=== PATIENT | male | born 1965 | race Caucasian/White ===

== ENCOUNTER 2025-03-27 13:55 | Outpatient (CLI) | payer OTHER, SELFPAY ==
--- OUTSIDE RECORDS SUMMARY | 2025-03-27 14:09 | XMS_ITS | Referral Summary ---
Author Organization [facility] Address [address] [place] [address] Care Team Providers Care Radio Installer Name Role Phone Trey Rg MD Primary Care Provider + [phone] Allergies No known active allergies Medications oxyCODONE-aceta minophen (PERCOCET) 5-325 mg per tabletIndicatio ns:Pain Take 1-2 tablets by mouth every 4 (four) hours as needed for pain 40 tablet 07/01/2019 Active ciprofloxacin (CILOXAN) 0.3 % ophthalmic solution 07/11/2019 Active diclofenac 0.1 % ophthalmic solution 07/11/2019 Active HYDROcodone-stewart taminophen (NORCO) 5-325 mg per tablet 06/13/2019 Activ e prednisoLONE acetate (PRED FORTE) 1 % ophthalmic suspension 07/11/[address] (PROTONIX) 40 mg EC tablet 07/19/2019 Active Active Problems Problem Noted Date Diagnosed Date Primary osteoarthritis of right elbow 10/19/2016 Social History Tobacco Use Types Packs/Day Years Used Date Smoking Tobacco: Never Smokeless Tobacco: Never Alcohol Use Standard Drinks/Week Comments Yes 0 (1 standard drink = 0.6 oz pur e alcohol) rare Sex and Gender Information Value Date Recorded Sex Assigned at Not on file 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 Gender Identity Not on file Sexual Orientation Not on file Last Filed Vital Signs Vital Sign Reading Time Taken Comments Blood Pressure 129/68 07/01/2019 3:50 PM CDT Pulse 70 07/01/2019 3:50 PM CDT Temperature 36 C (96.8 F) 07/01/2019 2:34 PM CDT Respiratory Rate 0 07/01/2019 3:40 PM CDT Oxygen Saturation 94% 07/01/2019 3:50 PM CDT Inhaled Oxygen Concentration - - Weight 99.8 kg (220 lb) 06/10/2019 9:00 AM CDT Height 182.9 cm (6') 06/10/2019 9:00 AM CDT Body Mass Index 29.84 06/10/2019 9:00 AM CDT Plan of Treatment Not on file Insurance [facility] H[facility]PPO Address: [address] [address] [place] [address] Care Teams Radio Installer Relationship Specialty Start Date End Date Trey Rg MD PCP - General Family Practice 05/24/19
--- OUTSIDE RECORDS SUMMARY | 2025-03-27 14:09 | XMS_ITS | Clinical Summary ---
Author Organization [facility] Address [address] [place] [address] Care Team Providers Care Bottom Painter Name Role Phone Trey Rg MD Primary Care Provider [phone] Source Comments [facility] Affiliates and Associated Physician Practices is amultiple site organization consisting of ambulatory clinics and hospital sitesin [place], [place], [place] and [place]. This disclosure is being madepursuant to the Care Everywhere program and may not contain all information available regarding this patient. Last updated 18.[facility] Allergies No known active allergies Medications * Be aware that medications may not be up to date on this document. Alwaysverify current medications with the patient. Pseudoephedrine -APAP-DM (DAYQUIL MULTI-SYMPTOM PO) Active pseudoephedrine CR 12hr (SUDAFED 12 HOUR) 120 MG tablet Take 120 mg by mouth every 12 hours as needed for Nasal Congestion Active Active Problems Problem Noted Date Diagnosed Date Acute pain of right knee 04/30/2024 Primary osteoarthritis of right elbow 10/19/2016 Family History Medical History Relation Name Comments Cancer - Other Brother 1 Diabetes Brother 2 Heart Disease Brother 2 Hypertension Father Cancer - Breast Mother Relation Name Status Comments Brother 1 Brother 2 Father Mother Social History Tobacco Use Types Packs/Day Years Used Date Smoking Tobacco: Never Smokeless Tobacco: Never Tobacco Cessation:Counseling Given: Not Answered Alcohol Use Standard Drinks/Week Comments No 0 (1 standard drink = 0.6 oz pur e alcohol) PHQ-2 Answer Date Recorded Patient Health Questionnaire-2 Score 0 06/24/2023 Sex and Gender Information Value Date Recorded Sex Assigned at Not on file 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 Gender Identity Not on file Sexual Orientation Not on file Occupation Industry Job Start Date Job End Date [employer] Not on file Not on file Not on file Last Filed Vital Signs Vital Sign Reading Time Taken Comments Blood Pressure 128/78 07/03/2019 8:00 AM CDT Pulse 65 06/24/2023 9:36 AM CDT Temperature 36.7 C (98 F) 09/11/2018 1:20 PM VOICE INSTRUCTOR Respiratory Rate 20 06/26/2017 5:20 PM CDT Oxygen Saturation 98% 06/24/2023 9:36 AM CDT Inhaled Oxygen Concentration - - Weight 103.5 kg (228 lb 3.2 oz) 06/24/2023 9:36 AM CDT Height 182.9 cm (6') 09/11/2018 1:20 PM VOICE INSTRUCTOR Body Mass Index 30.95 09/11/2018 1:20 PM VOICE INSTRUCTOR Plan of Treatment Health Maintenance Due Date Last Done Comments COLOGUARD (AGES 45-75) - COLON CA SCREENING [address] COLONOGRAPHY - COLON CA SCREENING 1965 FIT - COLON CA SCREENING 1965 FLEX SIG - COLON CA SCREENING 1965 HIV SCREENING 01/21/1979 DTAP/TDAP/TD VACCINES (1 - Tdap) 01/21/1983 PNEUMOCOCCAL VACCINE 50+ (1 of 1 - PCV) 01/21/2014 ZOSTER VACCINE (1 of 2) 01/21/2014 LIPID TESTING 10/05/2017 10/05/2012 (Previously completed) COVID-19 VACCINE ( - 2023-2 5 season) 2024 DEPRESSION SCREENING 09/04/2024 06/24/2023 COLONOSCOPY - COLON CA SCREENING 09/16/2024 09/16/2014 (Declined) Colorectal Cancer Screening 09/16/2024 INFLUENZA VACCINE (#1) 2025 Respiratory Syncytial Virus (RSV) Vaccine Pt: or over 60 yrs (1 - 1-dose 75+ series) 01/21/2039 HEPATITIS C SCREENING Addressed 09/16/2014 (Declined) Overridden with the intention of not completing the topic HEPATITIS B VACCINE Aged Out No longe r eligible based on patient's age to complete this topic HIB VACCINE Aged Out No longer eligi ble based on patient's age to complete this topic HPV VACCINE Aged Out No longer eligi ble based on patient's age to complete this topic MENINGOCOCCAL (Group B) VACCINE SHARED DECISION-MAKING Aged Out No longer eligible b ased on patient's age to complete this topic MENINGOCOCCAL GROUPS A/C/Y/W VACCINE Aged Out No longer eligible b ased on patient's age to complete this topic Insurance [facility] Care Teams Bottom Painter Relationship Specialty Start Date End Date Trey Rg MD [address] [place] [address] PCP - General Internal Medicine 07/02/19
--- OUTSIDE RECORDS SUMMARY | 2025-03-27 14:09 | XMS_ITS | Clinical Summary ---
Author Organization [facility] Address Formerly [facility] [place] [address] Care Team Providers Care Breast Worker Name Role Phone Wilmer Pinzon MD Primary Care Provider + Allergies No known active allergies Medications tamsulosin (FLOMAX) 0.4 MG CapIndications:Urin tino urgency,Urinary frequency Take 1 capsule (0.4 mg total) by mouth daily. 30 capsule 5 Active meloxicam (MOBIC) 15 MG tabletIndications:P rimary osteoarthritis of right knee Take 1 tablet (15 mg total) by mouth daily. 30 tablet 2 5 Active dicyclomine (BENTYL) 20 MG tabletIndications:R ight upper quadrant abdominal pain Take 1 tablet (20 mg total) by mouth 2 (two) times a day. 60 tablet 5 Active Active Problems Problem Noted Date Diagnosed Date RUQ abdominal pain 02/05/2025 Gallbladder sludge 02/05/2025 Primary osteoarthritis of right knee 07/06/2024 Assessment & Plan (07/06/2024 11:53 AM CDT): We discussed the risks, benefits, and alternatives. The only thing proven to slow the progression of osteoarthritis is weight loss. Every pound lost relieves 4 to 6 pounds of stress across the knee. We discussed unloading braces. Formal physical therapy to help with flexibility, mobility, and strength. We discussed TENS units. Nonsteroidal anti-inflammatories as well as Tylenol and pain medication and their side effects. We discussed steroid versus Visco supplement injection. We discussed eventual total knee arthroplasty. Failure of non-operative treatment. Recommendation at this time, all questions are answered. He would like to proceed with knee arthroscopy. He does realize there may be an issue and may have to push him off if we have an irrigation issue with the saline shortage. He appears to understand. We'll try to get him set up for 07/31/24. Complex tear of medial menis cus of right knee as current injury, initial encounter 05/24/2024 Encounters Date Type Department Care Team Description 02/25/2025 Scan HEALTH INFO SRVCS Scanned, [facility] 02/13/2025 Prep for Procedure [facility] - [place] [address], [address] [place] [address] Blade Alvarado MD 02/12/[address] [address] Wilmer Pinzon MD Referral 02/10/2025 8:28 AM CDT - 02/10/2025 11:59 PM CDT Hospital Encounter [facility] Nuclear Medicine [address] [place] [address] Blade Alvarado MD Discharge Disposition: Home or Self Care (Routine Discharge) 02/10/2025 Travel 02/06/2025 Scan HEALTH INFO SRVCS Scanned, [facility] 02/05/2025 11:30 AM CDT Office Visit [facility] [place] [address], [address] [place] [address] Blade Alvarado MD Abdominal Pain (RUQ been going on for a couple of months- more related to meals) 02/05/2025 Travel 02/03/[address] [place] [address] Wilmer Pinzon MD Referral 01/29/[address] [phone] Wilmer Pinzon MD Medication Request 01/23/[address] [address] Wilmer Pinzon MD Results 01/15/2025 10:30 AM CDT - 01/15/2025 11:59 PM CDT Hospital Encounter [facility] [address] [place] [address] Wilmer Pinzon MD Discharge Disposition: Home or Self Care (Routine Discharge) 01/15/2025 Travel 01/13/2025 10:40 AM CDT Office Visit [facility] Orthopedic Surgery[facility] [address] [address] Saw Larsen NP Knee Pain (Right knee pain. Right knee scope 07/31/24) 01/13/2025 Scan [facility] INFO SRVCS Scanned, [facility] 01/13/2025 Travel 01/06/2025 [employer] Message Enc [address] [address] Wilmer Pinzon MD Updates? 01/02/2025 11:53 AM CDT - 01/02/2025 11:59 PM CDT Hospital Encounter [facility] [address] [place] [address] Wilmer Pinzon MD Discharge Disposition: Home or Self Care (Routine Discharge) 01/02/2025 11:50 AM CDT - 01/02/2025 11:52 AM CDT Hospital Encounter [facility] [address] [place] [address] Wilmer Pinzon MD Discharge Disposition: Home or Self Care (Routine Discharge) 01/02/2025 11:40 AM CDT Office [place] [address] [place] [address] Wilmer Pinzon MD Back Pain (Right sided abd pain and back pain /) 01/02/2025 Travel from Last 3 Months Family History Medical History Relation Comments Cancer Brother Hypertension Father Breast Cancer Mother Cancer Mother Relation Status Comments Brother Father Mother Social History Tobacco Use Types Packs/Day Years Used Date Smoking Tobacco: Never Passive Smoke Exposure: Never Smokeless Tobacco: Never Tobacco Cessation:Counseling Given: No Alcohol Use Standard Drinks/Week Comments Never 0 (1 standard drink = 0.6 oz pur e alcohol) PHQ-2 Answer Date Recorded Patient Health Questionnaire-2 Score 0 01/02/2025 Sex and Gender Information Value Date Recorded Sex Assigned at Male 10/03/2024 1:26 PM 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 Legal Sex Male 6:22 PM 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 Gender Identity Not on file Sexual Orientation Not on file Last Filed Vital Signs Vital Sign Reading Time Taken Comments Blood Pressure 128/80 02/05/2025 11:38 AM CDT Pulse 64 02/05/2025 11:20 AM CDT Temperature 36.7 C (98 F) 02/05/2025 11:20 AM CDT Respiratory Rate 20 02/05/2025 11:20 AM CDT Oxygen Saturation 96% 02/05/2025 11:20 AM CDT Inhaled Oxygen Concentration - - Weight 101.6 kg (224 lb) 02/05/2025 11:20 AM CDT Height 181.6 cm (5' 11.5) 02/05/2025 11:20 AM C DT Body Mass Index 30.81 02/05/2025 11:20 AM CDT Plan of Treatment Health Maintenance Due Date Last Done Comments Colorectal Cancer Screening Colonoscopy (10 Years) 1964 Annual Physical 01/21/1967 Hepatitis C 01/21/1982 DTaP, Tdap and Td Vaccines ( 1 - Tdap) 01/21/1983 Pneumococcal Vaccine: 50+ Ye ars (1 of 1 - PCV) 01/21/2014 Zoster Vaccines (1 of 2) 01/21/2014 COVID-19 Vaccine ( - 2023-2 5 season) 2024 RSV Immunization or 60+ Years (1 - 1-dose 75+ series) 01/21/2039 PHQ-2 (Physician [place]) Completed 01/02/2025 Meningococcal B Vaccine Aged Out No l onger eligible based on patient's age to complete this topic Meningococcal Vaccine Aged Out No carla skylar eligible based on patient's age to complete this topic RSV Immunizations Under 20 Months Aged Out No longer eligible based on patient's age to complete this topic Procedures Procedure Name Priority Date/Time Associated Diagnosis Comments NM HEPATOBILIARY SCAN W/GB EJECTION FRACTION SAGRARIO 02/10/2025 1:43 PM CDT RUQ abdominal pain US ABD LIMITED Routine 01/15/2025 11:11 AM CDT Right upper quadrant abdominal pain XR ABD KUB Routine 01/02/2025 12:06 PM CDT Right upper quadrant abdominal pain COMPREHENSIVE METABOLIC PANEL Routine 01/02/2025 11:53 AM CDT Right upper quadrant abdominal pain CBC W/DIFF AUTOMATED Routine 01/02/2025 11:53 AM CDT Right upper quadrant abdominal pain from Last 3 Months Results * NM HEPATOBILIARY SCAN W/GB EJECTION FRACTION (02/10/2025 1:43 PM CDT) Anatomical Region Laterality Modality Abdomen Nuclear Medicine 02/10/2025 1:37 PM CDT Impressions 02/10/2025 1:39 PM CDT IMPRESSION: 1. Normal hepatic uptake and excretion of the radiopharmaceutical. 2. Reduced contractile response of the gallbladder to fatty meal challenge. Differential considerations include biliary dyskinesia, cystic duct syndrome, chronic cholecystitis, and an occasional finding in normal individuals. Referred By: BLADE ALVARADO Interpreted By: Trey Sosa MD, 02/10/2025 1:37 PM Narrative 02/10/2025 1:39 PM CDT [facility] [address] [place] [address] Hepatobiliary Scintigraphy with Gallbladder Ejection Fraction Date of study: 02/10/2025. Indications: 60-year-old male with right upper quadrant abdominal pain. Radiopharmaceutical: 5.2 mCi Tc-99m mebrofenin IV and 8 oz Ensure Plus, p.o. Comparison: -Limited abdominal ultrasound dated 01/15/2025. Technique: Following intravenous administration of Tc-99m mebrofenin, sequential abdominal images were obtained through 60 minutes. In order to evaluate the contractile response of the gallbladder in response to cholecystokinin, 8 oz Ensure Plus was ingested approximately 60 minutes after the administration of the radiopharmaceutical. Sequential imaging was continued for 60 minutes after ingestion of Ensure Plus. Findings: There is prompt, uniform accumulation of tracer by the liver. There is normal filling of the intrahepatic ducts, common bile duct and gallbladder, and normal excretion of tracer into the duodenum. The post-fatty meal (Ensure Plus) images reveal reduced contractile response of the gallbladder. The calculated gallbladder ejection fraction is 22% (normal greater than 33%). Procedure Note Trey Sosa MD - 02/10/2025 [facility] [address] [place] [address] Hepatobiliary Scintigraphy with Gallbladder Ejection Fraction Date of study: 02/10/2025. Indications: 60-year-old male with right upper quadrant abdominal pain. Radiopharmaceutical: 5.2 mCi Tc-99m mebrofenin IV and 8 oz Ensure Plus, p.o. Comparison: -Limited abdominal ultrasound dated 01/15/2025. Technique: Following intravenous administration of Tc-99m mebrofenin, sequentialabdominal images were obtained through 60 minutes. In order to evaluatethe contractile response of the gallbladder in response tocholecystokinin, 8 oz Ensure Plus was ingested approximately 60 minutesafter the administration of the radiopharmaceutical. Sequential imagingwas continued for 60 minutes after ingestion of Ensure Plus. Findings: There is prompt, uniform accumulation of tracer by the liver. There isnormal filling of the intrahepatic ducts, common bile duct andgallbladder, and normal excretion of tracer into the duodenum. The post-fatty meal (Ensure Plus) images reveal reduced contractileresponse of the gallbladder. The calculated gallbladder ejection fractionis 22% (normal greater than 33%). IMPRESSION: 1. Normal hepatic uptake and excretion of the radiopharmaceutical. 2. Reduced contractile response of the gallbladder to fatty mealchallenge. Differential considerations include biliary dyskinesia, cysticduct syndrome, chronic cholecystitis, and an occasional finding in normalindividuals. Referred By: BLADE ALVARADO Interpreted By: Trey Sosa MD, 02/10/2025 1:37 PM us Blade Alvarado MD NUC MED Final Res ult * US ABD LIMITED (01/15/2025 11:11 AM CDT) Anatomical Region Laterality Modality Abdomen Ultrasound 2025 1:06 PM CDT Impressions 2025 1:09 PM CDT IMPRESSION: Mild hepatosteatosis. Trace biliary sludge. Acute or localizing sonographic abnormality Ordered By: WILMER PINZON Interpreted By: Rene Chanel, 2025 1:06 PM Narrative 2025 1:09 [place] [address] EXAMINATION: US ABD LIMITED INDICATIONS: Right upper quadrant pain COMPARISON: NONE TECHNIQUE Grayscale, color flow, and spectral Doppler ultrasound imaging of the abdomen, limited to the right upper quadrant. FINDINGS: The visualized liver is normal in morphology with minimal increased echogenicity. The portal triads are maintained. Focal geographic hypoechoic fatty sparing along the gallbladder fossa. No suspicious hepatic mass, biliary ductal dilatation, or perihepatic ascites. The portal vein is patent with hepatopedal flow. Smooth gallbladder distention with small amount of layering low-level intraluminal echoes dependently. No shadowing calculi, associated wall thickening, or pericholecystic edema. The gallbladder wall measures less than 3 mm in thickness. No reported sonographic Rogers's sign. The common duct measures approximately 3 mm at the joanna hepatis. The visualized pancreas is normal in echogenicity without mass or ductal dilatation. The pancreatic tail is poorly visualized. Color Doppler flow is preserved at the portosplenic confluence without filling defect. The visualized right kidney demonstrates normal parenchymal echogenicity and corticomedullary differentiation. No visualized renal mass, calculus, or hydronephrosis. No soft tissue mass or ascites within the area imaged. Procedure Note Rene Chanel MD - 2025 [facility] [address] [place] [address] EXAMINATION: US ABD LIMITED INDICATIONS: Right upper quadrant pain COMPARISON: NONE TECHNIQUE Grayscale, color flow, and spectral Doppler ultrasound imagingof the abdomen, limited to the right upper quadrant. FINDINGS: The visualized liver is normal in morphology with minimal increasedechogenicity. The portal triads are maintained. Focal geographic hypoechoic fatty sparing along the gallbladder fossa. No suspicious hepatic mass, biliary ductal dilatation, or perihepaticascites. The portal vein is patent with hepatopedal flow. Smooth gallbladder distention with small amount of layering low- levelintraluminal echoes dependently. No shadowing calculi, associated wall thickening, or pericholecysticedema. The gallbladder wall measures less than 3 mm in thickness. No reported sonographic Rogers's sign. The common duct measures approximately 3 mm at the joanna hepatis. The visualized pancreas is normal in echogenicity without mass or ductaldilatation. The pancreatic tail is poorly visualized. Color Doppler flow is preserved at the portosplenic confluence withoutfilling defect. The visualized right kidney demonstrates normal parenchymal echogenicityand corticomedullary differentiation. No visualized renal mass, calculus, or hydronephrosis. No soft tissue mass or ascites within the area imaged. IMPRESSION: Mild hepatosteatosis. Trace biliary sludge. Acute orlocalizing sonographic abnormality Ordered By: WILMER PINZON Interpreted By: Rene Chanel, 2025 1:06 PM us Wilmer Pinzon MD ULTRASOUND Final Re sult * XR ABD KUB (01/02/2025 12:06 PM CDT) Anatomical Region Laterality Modality Abdomen Radiographic Lilibeth ging 01/04/2025 7:49 AM CDT Impressions 01/04/2025 7:51 AM CDT IMPRESSION: Nonobstructive bowel gas pattern. If pain persists, may consider further evaluation with other imaging such as CT or ultrasound. Ordered By: WILMER PINZON Interpreted By: Greyson Angeles MD, 01/04/2025 7:49 AM Narrative 01/04/2025 7:51 AM CDT [address] [address] Examination: Abdomen 1 view Exam time: 01/02/2025. Clinical history: Pain. Comparison: None. Technique: Single supine view of the abdomen were obtained. Findings: Bowel gas pattern appears normal. No obvious free air on this supine film. Pelvic phleboliths. Bony structures are grossly intact. No organomegaly. Procedure Note Greysno Angeles MD - 01/04/[address] [address] Examination: Abdomen 1 view Exam time: 01/02/2025. Clinical history: Pain. Comparison: None. Technique: Single supine view of the abdomen were obtained. Findings: Bowel gas pattern appears normal. No obvious free air on thissupine film. Pelvic phleboliths. Bony structures are grossly intact. Noorganomegaly. IMPRESSION: Nonobstructive bowel gas pattern. If pain persists, may consider furtherevaluation with other imaging such as CT or ultrasound. Ordered By: WILMER PINZON Interpreted By: Greyson Angeles MD, 01/04/2025 7:49 AM Wilmer Pinzon MD GENERAL IMAGING Final Re sult * (ABNORMAL) COMPREHENSIVE METABOLIC PANEL (01/02/2025 11:53 AM CDT) GLUCOSE 101(H) 70 - 99 MG/DL 01/02/2025 3:02 PM CDT [facility] BUN 16 7 - 18 MG/DL 01/02/2025 3:02 PM CDT [facility] CREATININE S/P/B 0.99 0.7 - 1.3 MG/DL 01/02/2025 3:02 PM CDT [facility] SODIUM S/P/B 139 136 - 145 MMOL/L 01/02/2025 3:02 PM T [facility] POTASSIUM S/P/B 4.2 3.5 - 5.1 MMOL/L 01/02/2025 3:02 PM [facility] CHLORIDE S/P/B 105 100 - 108 MMOL/L 01/02/2025 3:02 PM T [facility] CO2 28.6 21 - 32 MMOL/L 01/02/2025 3:02 PM [facility] CALCIUM S/P/B 8.7 8.5 - 10.1 MG/DL 01/02/2025 3:02 PM [facility] BILIRUBIN TOTAL S/P/B 0.4 0.2 - 1.2 MG/DL 01/02/2025 3:02 PM [facility] Comment: THIS ASSAY IS NOT RECOMMENDED FOR PATIENTS UNDERGOING TREATMENT WITH ELTROMBOPAG DUE TO THE POTENTIAL FOR FALSELY ELEVATED RESULTS. TOTAL PROTEIN S/P/B 7.1 6.4 - 8.2 G/DL 01/02/2025 3:02 PM [facility] ALBUMIN S/P/B 3.8 3.4 - 5.0 G/DL 01/02/2025 3:02 PM [facility] AST 35 15 - 37 U/L 01/02/2025 3:02 PM [facility] ALT 43 16 - 60 U/L 01/02/2025 3:02 PM [facility] ALKALINE PHOSPHATASE S/P/B 75 50 - 136 U/L 01/02/2025 3:02 PM [facility] ANION GAP 5.4 5 - 15 MMOL/L 01/02/2025 3:02 PM [facility] BUN CREATININE RATIO 16.2 6 - 26 01/02/2025 3:02 PM CDT [facility] A/G RATIO 1.2 1.0 - 2.0 RATIO 01/02/2025 3:02 PM CDT [facility] GFR ESTIMATE 87(L) >90 ML/MIN/1.7 3 M2 01/02/2025 3:02 PM CDT [facility] Comment: NOTE: eGFR is not calculated for patients <18 years of age. This is an estimated GFR calculation using the new CKD EPI creatinine equation without race and so does not require a correction factor for race. This estimated GFR should not be used for calculating drug doses. 01/02/2025 11:5 3 AM CDT us Wilmer Pinzon MD LABORATORY Final Re sult [facility] [address] [place] [address], * (ABNORMAL) CBC W/DIFF AUTOMATED (01/02/2025 11:53 AM CDT) WBC 5.01 4.50 - 11.00 x10'3/uL 01/02/2025 1:08 PM CDT [facility] RBC 4.62(L) 4.70 - 6.10 x10'6/uL 01/02/2025 1:08 PM CDT [facility] HGB 14.3 14.0 - 18.0 G/DL 01/02/2025 1:08 PM CDT [facility] HCT 42.4(L) 43.0 - 54.0 % 01/02/2025 1:08 PM CDT [facility] MCV 91.8 80.0 - 94.0 FL 01/02/2025 1:08 PM CDT [facility] MCH 31.0 27.0 - 31.0 PG 01/02/2025 1:08 PM CDT [facility] MCHC 33.7 32.0 - 36.0 G/DL 01/02/2025 1:08 PM CDT [facility] RDW 13.5 11.5 - 14.5 % 01/02/2025 1:08 PM CDT [facility] PLT 194 130 - 400 x10'3/uL 01/02/2025 1:08 PM CDT [facility] MPV 10.5 9.3 - 12.2 FL 01/02/2025 1:08 PM CDT [facility] CBC COMMENT AUTOMATED RBC MORPHOLOGY AND PLATELET EVALUATION NORMAL 01/02/2025 1:08 PM CDT [facility] NEUTROPHILS % 51.9 % 01/02/2025 1:08 PM CDT [facility] LYMPHOCYTES % 29.5 % 01/02/2025 1:08 PM CDT [facility] MONOCYTES % 12.8 % 01/02/2025 1:08 PM CDT [facility] EOSINOPHILS 4.6 % 01/02/2025 1:08 PM T [facility] BASOPHILS 0.8 % 01/02/2025 1:08 PM CDT [facility] IMMATURE GRANS % 0.4 % 01/03/20 1:08 PM CDT [facility] NRBC % 0.0 % 01/02/2025 1:08 PM CDT [facility] ABS. NEUTROPHILS TOTAL 2.60 1.80 - 7.70 x10'3/uL 01/02/2025 1:08 PM T [facility] ABS. LYMPHOCYTES 1.48 1.00 - 4.80 x10'3/uL 01/02/2025 1:08 PM CDT [facility] ABS. MONOCYTES 0.64 0.30 - 0.82 x10'3/uL 01/02/2025 1:08 PM CDT [facility] ABS. EOSINOPHILS 0.23 0.04 - 0.54 x10'3/uL 01/02/2025 1:08 PM CDT [facility] ABS. BASOPHILS 0.04 0.01 - 0.08 x10'3/uL 01/02/2025 1:08 PM CDT [facility] ABS. IMMATURE GRANULOCYTES 0.02 0.00 - 0.49 x10'3/uL 01/02/2025 1:08 PM CDT [facility] ABS. NUCLEATED RBC'S 0.00 0.00 - 0.01 x10'3/uL 01/02/2025 1:08 PM CDT [facility] 01/02/2025 11:5 3 AM CDT Wilmer Pinzon MD LABORATORY Final Re sult [facility] [address] [place] [address], from Last 3 Months Insurance [employer] Care Teams Breast Worker Relationship Specialty Start Date End Date Wilmer Pinzon MD [address] [place] [id number] PCP - General FAMILY PRACTICE 01/11/23
--- OUTSIDE RECORDS SUMMARY | 2025-03-27 14:09 | XMS_ITS | Clinical Summary ---
Author Organization [facility] Address [address] [place] [address] Care Team Providers Care Marketing And Public Relations Manager Name Role Phone Trey Rg MD Primary Care Provider + [phone] Allergies No known active allergies Medications oxyCODONE-aceta [...] Date Primary osteoarthritis of right elbow 10/19/2016 Surgical History Surgery Date Site/Laterality Comments ELBOW SURGERY FOOT SURGERY 09/04/2011 - 09/03/2012 Left INGUINAL HERNIA REPAIR 06/13/2019 Left per patient Medical History Medical History Date Comments Osteoarthritis Family History Medical History Relation Name Comments Cancer Brother Diabetes Brother Mental illness Brother Hypertension Father Cancer Mother Anesthesia problems Neg Hx Heart disease Neg Hx Stroke Neg Hx Relation Name Status Comments Brother Father Mother Social History Tobacco Use Types Packs/Day Years Used Date Smoking Tobacco: Never Smokeless Tobacco: Never Alcohol Use Standard Drinks/Week Comments Yes 0 (1 standard drink = 0.6 oz pur e alcohol) rare Sex and Gender Information Value Date Recorded Sex Assigned at Not on file 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
--- NOTE | 2025-03-27 14:14 | ECG_ITS ---
Test Date: 2025-03-27 14:26:29 Measurements Intervals [place] Rate: 56 P: 59 MS: 145 QRS: 30 QRSD: 97 T: 16 QT: 409 QTc: 397 Interpretive Statements SINUS BRADYCARDIA No previous ECG available for comparison Electronically Signed On 03-28-2025 16:01:28 CDT by Rashel Benoit M.D.
[2025-03-27 15:02] LABS: Alanine Aminotransferase 41 U/L (6-50); Albumin Level 4.4 g/dL (3.5-5.1); Alkaline Phosphatase 64 U/L (38-126); Amylase 66 U/L (30-110); Aspartate Amino Transferase 47 U/L (17-59); Bilirubin,Total 0.4 mg/dL (0.2-1.3); Lipase 70 U/L (23-300); Total Protein 7.4 g/dL (6.3-8.2)
== END 2025-03-27 13:56 | disposition home or self-care (01) ==
PROVIDERS: PCP Family Medicine; Visit Provider Surgery
DX: K82.8 Other specified diseases of gallbladder (principal); Z01.818 Encounter for other preprocedural examination; R00.1 Bradycardia, unspecified
CPT/HCPCS: 36415; 80076; 82150; 83690; 86850; 86900; 86901; 93005

== ENCOUNTER 2025-03-28 00:36 | Day surgery (SDC) | payer OTHER, SELFPAY ==
[2025-03-25 12:05] VITALS: BMI 30.6
--- NOTE | 2025-03-25 12:14 | PC.NURSE ---
Report to the Outpatient Waiting Room, entrance under the green pavilion located off [facility], at time _0600_ on date _[id number]_. Planned Procedure Time: _0730_.? Time changes happen often and if your time is changed the preop area will call you the afternoon before. - You and your visitor will be asked to self-screen and do not enter if you have any COVID symptoms. Please call surgeon if you need to reschedule. - A mask is optional within the hospital at this time. Patients may have clear liquids (water, carbonated beverages, clear teas, apple juice) until 3 hours prior to surgery with a maximum of 20 ounces. - No food from midnight until time of surgery and no smoking, or chewing tobacco (or any form of nicotine). No chewing gum, candy or mints. Take only the following medications with a SIP of water on the morning of surgery: ___None DO NOT STOP ANY OF YOUR OTHER PRESCRIPTION MEDICATIONS PRIOR TO SURGERY EXCEPT THE FOLLOWING Hold all vitamins and supplements for 3 days per anesthesiologist. Medications to discontinue per physician Date to take last dose Please no make-up, nail georgian, hairspray, perfume, deodorant, or body powder the day of surgery.? No jewelry (including any body piercings) or valuables the day of surgery, leave them at home.? Please take a shower or bath the night before, or the morning of, surgery with an antibacterial soap.? Wear comfortable, loose fitting clothing. - Jewelry must be removed prior to entering the operating room.? Rings and piercings that are not removed may be cut off. - The hospital will not accept responsibility for valuables.? - Please leave all valuables, including medications, at home the day of surgery. If you are going home after surgery, a licensed seasonal driver must drive you home.? - NO public transportation without another adult if you receive anesthesia. - We recommend that an adult stay with you for 24 hours following discharge. - We also recommend that you do not drive, make important decision, drink alcoholic beverages, or take any drugs that were not prescribed by your health care provider for at least 24 hours after your discharge time. Follow any additional instructions given to you from your surgeon. Telephone instructions given to __Robrancho___and asked if any additional questions and then verbalized understanding. Patient advised to call surgeon office or pre surgery nurse liaison [phone] if any additional questions.
[2025-03-28] VITALS (10 sets, daily range): BP systolic 131–140; BP diastolic 72–84; PULSE 48–68; RESP 13–16; TEMP 36.6–36.7; O2SAT 97–100
--- OUTSIDE RECORDS SUMMARY | 2025-03-28 00:39 | XMS_ITS | Clinical Summary ---
Author Organization [facility] Address [address] [place] [address] Care Team Providers Care Cellophane Tester Name Role Phone Trey Rg MD Primary Care Provider [phone] Source Comments [facility],non[facility] Affiliates and Associated Physician Practices is amultiple site organization consisting of ambulatory clinics and hospital sitesin [place], [place], [place] and [place]. This disclosure is being madepursuant to the Care Everywhere program and may not contain all information available regarding this patient. 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 Gender Identity Not on file Sexual Orientation Not on file Occupation Industry Job Start Date Job End Date [employer] Not on file Not on file Not on file Last Filed Vital Signs Vital Sign Reading Time Taken Comments Blood Pressure 128/78 07/03/2019 8:00 AM CDT Pulse 65 06/24/2023 9:36 AM CDT Temperature 36.7 C (98 F) 09/11/2018 1:20 PM FLUE TILE PRESS OPERATOR Respiratory Rate 20 06/26/2017 5:20 PM CDT Oxygen Saturation 98% 06/24/2023 9:36 AM CDT Inhaled Oxygen Concentration - - Weight 103.5 kg (228 lb 3.2 oz) 06/24/2023 9:36 AM CDT Height 182.9 cm (6') 09/11/2018 1:20 PM FLUE TILE PRESS OPERATOR Body Mass Index 30.95 09/11/2018 1:20 PM FLUE TILE PRESS OPERATOR Plan of Treatment Health Maintenance Due Date [...] patient's age to complete this topic Insurance [facility] Care Teams Cellophane Tester Relationship Specialty Start Date End Date Trey Rg MD [address] [place] [address] PCP - General Internal Medicine 07/02/19
--- OUTSIDE RECORDS SUMMARY | 2025-03-28 00:39 | XMS_ITS | Clinical Summary ---
Author Organization [facility] Address [facility] [place] [address] Care Team Providers Care Sleeve Separator Name Role Phone Wilmer Pinzon MD Primary [...] [facility] 02/13/2025 Prep for Procedure [facility] - [place] [address], [address] [place] [address] Blade Alvarado MD 02/12/[address] [address] Wilmer Pinzon MD Referral 02/10/2025 8:28 AM CDT - 02/10/2025 11:59 PM CDT Hospital Encounter [facility] [address] [place] [address] Blade Alvarado MD Discharge Disposition: Home or Self Care (Routine Discharge) 02/10/2025 Travel 02/06/2025 Scan HEALTH INFO SRVCS Scanned, [facility] 02/05/2025 11:30 AM CDT Office Visit [facility] [place] [address], [address] [place] [address] Blade Alvarado MD Abdominal Pain (RUQ been going on for a couple of months- more related to meals) 02/05/2025 Travel 02/03/[address] [place] [address] Wilmer Pinzon MD Referral 01/29/[address] [address] Wilmer Pinzon MD Medication Request 01/23/[address] [address] Wilmer Pinzon MD Results 01/15/2025 10:30 AM CDT - 01/15/2025 11:59 PM CDT Hospital Encounter [facility] [address] [place] [address] Wilmer Pinzon MD Discharge Disposition: Home or Self Care (Routine Discharge) 01/15/2025 Travel 01/13/2025 10:40 AM CDT Office Visit [facility] [address] [facility] [address] Saw Larsen NP Knee Pain (Right knee pain. Right knee scope 07/31/24) 01/13/2025 Scan [employer] INFO SRVCS Scanned, [facility] 01/13/2025 Travel 01/06/2025 [employer] Message Enc [address] [address] Wilmer Pinzon MD Updates? 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 Legal Sex Male 6:22 PM TRANSPORTATION MANAGER Gender Identity Not on file Sexual Orientation [...] - 1-dose 75+ series) 01/21/2039 PHQ-2 (Physician [place]) Completed 01/02/2025 Meningococcal B Vaccine Aged Out [...] 02/10/2025 1:39 PM CDT [facility] [address] [place] [address] Hepatobiliary Scintigraphy with Gallbladder Ejection Fraction Date [...] MD - 02/10/2025 [facility] [address] [place] [address] Hepatobiliary Scintigraphy with Gallbladder Ejection Fraction Date [...] 1:06 PM Narrative 2025 1:09 [place] [address] EXAMINATION: US ABD LIMITED INDICATIONS: Right upper [...] Procedure Note Rene Chanel MD - 2025 [facility] [address] [place] [address] EXAMINATION: US ABD LIMITED INDICATIONS: Right upper [...] 7:49 AM Narrative 01/04/2025 7:51 AM CDT [address] [address] Examination: Abdomen 1 view Exam time: 01/02/2025. Clinical history: Pain. Comparison: None. Technique: Single supine view of the abdomen were obtained. Findings: Bowel gas pattern appears normal. No obvious free air on this supine film. Pelvic phleboliths. Bony structures are grossly intact. No organomegaly. Procedure Note Greyson Angeles MD - 01/04/[address] [address] Examination: Abdomen 1 view Exam time: 01/02/2025. [...] - 99 MG/DL 01/02/2025 3:02 PM CDT [facility] BUN 16 7 - 18 MG/DL 01/02/2025 3:02 PM CDT [facility] CREATININE S/P/B 0.99 0.7 - 1.3 MG/DL 01/02/2025 3:02 PM CDT [facility] SODIUM S/P/B 139 136 - 145 MMOL/L 01/02/2025 3:02 PM T [facility] POTASSIUM S/P/B 4.2 3.5 - 5.1 MMOL/L 01/02/2025 3:02 PM [facility] CHLORIDE S/P/B 105 100 - 108 MMOL/L 01/02/2025 3:02 PM T [facility] CO2 28.6 21 - 32 MMOL/L 01/02/2025 3:02 PM [facility] CALCIUM S/P/B 8.7 8.5 - 10.1 MG/DL 01/02/2025 3:02 PM [facility] BILIRUBIN TOTAL S/P/B 0.4 0.2 - 1.2 MG/DL 01/02/2025 3:02 PM [facility] Comment: THIS ASSAY IS NOT RECOMMENDED FOR PATIENTS UNDERGOING TREATMENT WITH ELTROMBOPAG DUE TO THE POTENTIAL FOR FALSELY ELEVATED RESULTS. TOTAL PROTEIN S/P/B 7.1 6.4 - 8.2 G/DL 01/02/2025 3:02 PM [facility] ALBUMIN S/P/B 3.8 3.4 - 5.0 G/DL 01/02/2025 3:02 PM [facility] AST 35 15 - 37 U/L 01/02/2025 3:02 PM [facility] ALT 43 16 - 60 U/L 01/02/2025 3:02 PM [facility] ALKALINE PHOSPHATASE S/P/B 75 50 - 136 U/L 01/02/2025 3:02 PM [facility] ANION GAP 5.4 5 - 15 MMOL/L 01/02/2025 3:02 PM [facility] BUN CREATININE RATIO 16.2 6 - 26 01/02/2025 3:02 PM CDT [facility] A/G RATIO 1.2 1.0 - 2.0 RATIO 01/02/2025 3:02 PM CDT [facility] GFR ESTIMATE 87(L) >90 ML/MIN/1.7 3 M2 01/02/2025 3:02 PM CDT [facility] Comment: NOTE: eGFR is not calculated for patients <18 years of age. This is an estimated GFR calculation using the new CKD EPI creatinine equation without race and so does not require a correction factor for race. This estimated GFR should not be used for calculating drug doses. 01/02/2025 11:5 3 AM CDT us Wilmer Pinzon MD LABORATORY Final Re sult [facility] [address] [place] [address], * (ABNORMAL) CBC W/DIFF AUTOMATED (01/02/2025 11:53 AM CDT) WBC 5.01 4.50 - 11.00 x10'3/uL 01/02/2025 1:08 PM CDT [facility] RBC 4.62(L) 4.70 - 6.10 x10'6/uL 01/02/2025 1:08 PM CDT [facility] HGB 14.3 14.0 - 18.0 G/DL 01/02/2025 1:08 PM CDT [facility] HCT 42.4(L) 43.0 - 54.0 % 01/02/2025 1:08 PM CDT [facility] MCV 91.8 80.0 - 94.0 FL 01/02/2025 1:08 PM CDT [facility] MCH 31.0 27.0 - 31.0 PG 01/02/2025 1:08 PM CDT [facility] MCHC 33.7 32.0 - 36.0 G/DL 01/02/2025 1:08 PM CDT [facility] RDW 13.5 11.5 - 14.5 % 01/02/2025 1:08 PM CDT [facility] PLT 194 130 - 400 x10'3/uL 01/02/2025 1:08 PM CDT [facility] MPV 10.5 9.3 - 12.2 FL 01/02/2025 1:08 PM CDT [facility] CBC COMMENT AUTOMATED RBC MORPHOLOGY AND PLATELET EVALUATION NORMAL 01/02/2025 1:08 PM CDT [facility] NEUTROPHILS % 51.9 % 01/02/2025 1:08 PM CDT [facility] LYMPHOCYTES % 29.5 % 01/02/2025 1:08 PM CDT [facility] MONOCYTES % 12.8 % 01/02/2025 1:08 PM CDT [facility] EOSINOPHILS 4.6 % 01/02/2025 1:08 PM T [facility] BASOPHILS 0.8 % 01/02/2025 1:08 PM CDT [facility] IMMATURE GRANS % 0.4 % 01/03/20 1:08 PM CDT [facility] NRBC % 0.0 % 01/02/2025 1:08 PM CDT [facility] ABS. NEUTROPHILS TOTAL 2.60 1.80 - 7.70 x10'3/uL 01/02/2025 1:08 PM T [facility] ABS. LYMPHOCYTES 1.48 1.00 - 4.80 x10'3/uL 01/02/2025 1:08 PM CDT [facility] ABS. MONOCYTES 0.64 0.30 - 0.82 x10'3/uL 01/02/2025 1:08 PM CDT [facility] ABS. EOSINOPHILS 0.23 0.04 - 0.54 x10'3/uL 01/02/2025 1:08 PM CDT [facility] ABS. BASOPHILS 0.04 0.01 - 0.08 x10'3/uL 01/02/2025 1:08 PM CDT [facility] ABS. IMMATURE GRANULOCYTES 0.02 0.00 - 0.49 x10'3/uL 01/02/2025 1:08 PM CDT [facility] ABS. NUCLEATED RBC'S 0.00 0.00 - 0.01 x10'3/uL 01/02/2025 1:08 PM CDT [facility] 01/02/2025 11:5 3 AM CDT Wilmer Pinzon MD LABORATORY Final Re sult [facility] [address] [place] [id number], from Last 3 Months Insurance [employer] Care Teams Sleeve Separator Relationship Specialty Start Date End Date Wilmer Pinzon MD [address] [place] [id number] PCP - General FAMILY PRACTICE 01/11/23
--- OUTSIDE RECORDS SUMMARY | 2025-03-28 00:39 | XMS_ITS | Clinical Summary ---
Author Organization 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
--- OUTSIDE RECORDS SUMMARY | 2025-03-28 00:39 | XMS_ITS | Referral Summary ---
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
--- NOTE | 2025-03-28 06:52 | P.PNAN_ITS ---
Anes - Initial Pre Proc Eval Procedure: Operation Date: 03/28/25 07:30 Proposed Procedures p Robotic Cholecystectomy, Possible Open, - Raz Sanders MD s Open Umbilical Hernia Repair - Raz Sanders MD Date/Time: 03/28/25 06:52 Surgeon: Raz Sanders MD Pre Op Diagnosis: billary dysknesia, gallbladder sludge, Patient Data Age: 60 Gender: M Height: 1.83 m Weight: 102.3 kg Allergies Allergy/AdvReac Type Severity Reaction Status Date / Time No Known Allergies Allergy Verified 03/25/25 12:05 Home Medications ?Medication ?Instructions ?Recorded ?Confirmed ?Type No Home Medications 03/25/25 03/25/25 History Patient hx anesthesia problems: none Family hx anesthesia problems: none Results Review: All pre-operative results and documents have been reviewed as part of the pre- operative evaluation. [facility] Past Medical History Medical History Torn meniscus Hernia Gallbladder disorder Surgical History Surgical History Hx of knee surgery 2023 Bone spur 2018 Hx of hernia repair 2019 Family History Family History Mother Breast cancer Sibling Cancer Grandparent Cancer Father Hypertension Social History Social History Smoking status: Never smoker Alcohol intake: current Drinks per week: 4 Substance use: never Substance use type: does not use Do You Feel Safe in your Home?: Yes Lack of Transportation: No Lack of Food: Never True Current Housing: I Have Housing Concerned About Future Housing: No Difficulty Paying Gas/Electric Bills: No Difficulty Paying for Meds: No Currently Unemployed: No Education: Bachelor's Degree Difficulty w/ Childcare or Family Care: No Living arrangements: with family Occupation/Education: occupation Additional occupation/education comments: [employer] Spiritual care concerns: No Agree to blood products: Yes Anes - Eval Final PreProcedure Day of Procedure 03/28/25 06:52 Patient weight: overweight Heart: regular rate and rhythm Lungs: clear to auscultation Airway: Mallampati scale class II Neurological: alert and oriented Last oral intake: >/= 8 hours ASA classification: II Emergent: no Anesthetic plan: proceed Anesthesia type and monitoring: general ETT and standard monitoring Results Review: All pre-operative results and documents have been reviewed as part of the pre- operative evaluation. Informed Consent: The patient's anesthetic plan and its attendant risks and benefits were discussed with the patient/family/POA. Questions were solicited and answers provided to the satisfaction of the patient/family/POA.
[2025-03-28] MEDS: INDOCYANINE GREEN 25 MG VIAL WITH DILUENT 3.75 MG IV PUSH (07:00)
[2025-03-28] MEDS: ACETAMINOPHEN 500 MG TABLET 1000 MG PO (07:00)
[2025-03-28] MEDS: LACTATED RINGERS 1,000 ML 30 ML IV CONT ×2 (07:00→09:22)
[2025-03-28] MEDS: KETOROLAC 15 MG/ML VIAL (*BKC) IV PUSH ×2 (07:00→08:53)
--- NOTE | 2025-03-28 07:19 | P.HP_ITS ---
H&P: HPI History of Present Illness Date/Time: 03/28/25 07:19 Chief Complaint: RUQ pain Narrative: Mr. Nunez presents to the office at the request of Dr. Wilmer Hollis for evaluation. He reports a 2 to 3 month history of right upper back and shoulder pain. Initially pain was associated with eating, but now it's persistent. He was sent by his PCP for a abdominal ultrasound which showed gallbladder sludge. HIDA scan was also done which showed an EF of 22%, without recreation of symptoms with CCK injection. [facility] Past Medical History Medical History Torn meniscus Hernia Gallbladder disorder Surgical History Surgical History Hx of knee surgery 2023 Bone spur 2019 Hx of hernia repair 2019 Family History Family History Mother Breast cancer Sibling Cancer Grandparent Cancer Father Hypertension Social History Social History Smoking status: Never smoker Alcohol intake: current Drinks per week: 4 Substance use: never Substance use type: does not use Do You Feel Safe in your Home?: Yes Lack of Transportation: No Lack of Food: Never True Current Housing: I Have Housing Concerned About Future Housing: No Difficulty Paying Gas/Electric Bills: No Difficulty Paying for Meds: No Currently Unemployed: No Education: Bachelor's Degree Difficulty w/ Childcare or Family Care: No Living arrangements: with family Occupation/Education: occupation Additional occupation/education comments: [employer] care concerns: No Agree to blood products: Yes Meds Home Medications and Allergies Home Medications ?Medication ?Instructions ?Recorded ?Confirmed ?Type No Home Medications 03/25/25 03/25/25 History Allergies Allergy/AdvReac Type Severity Reaction Status Date / Time No Known Allergies Allergy Verified 03/25/25 12:05 Exam Const: General: comfortable and no acute distress HENMT: Ears: TM's normal bilaterally Face/Nose/Sinus: Normal nares present Mouth: Yes moist mucous membranes Eyes: General: appearance normal, both eyes and all related structures Sclera: sclerae normal Pupils: Equal, round and reactive pupils present EOM: EOMs intact bilaterally Neck: Neck: supple and no JVD Resp: Effort & Inspection: normal respiratory effort Auscultation: clear to auscultation bilaterally Cardio: Rate: regular rate Rhythm: regular rhythm GI: GI Palp: Yes Soft to palpation, No Firmness to palpation present (GI), No Tenderness to palpation present (GI), No Guarding due to palpation present (GI) and No Hernia present Skin: General skin exam: normal color and no rashes or lesions noted Neuro: General: gait normal Speech: normal speech Motor exam (neuro): 5/5 motor strength present throughout Sensory Exam: normal sensation Extrem: General: normal to inspection Psych: Mental Status: mental status grossly normal Affect: normal affect Assessment and Plan Assessment and plan (1) Biliary dyskinesia: Code(s): K82.8 - Other specified diseases of gallbladder Status: Acute Assessment and Plan: Prior to the patients visit, I reviewed the office note from Dr. Wilmer Hollis as well as the reports from the patients recent abdominal ultrasound and HIDA scan. Patient has been experiencing persistent pain associated with eating. Explained his symptoms are consistent with findings on imaging. Recommend proceeding with laparoscopic cholecystectomy to be done in the OR under general anesthesia as an outpatient. The surgery was discussed in detail with the patient including description, risks, benefits, post-operative restrictions, recovery, and anticipated outcome.?Specific risks to include bleeding and possible need for blood transfusion, infection, bile leak, injury to other organs, common?bile duct injury, and conversion to open cholecystectomy has been discussed.?Surgical description and low fat handout sheets were given and explained. Questions answered and the patient agrees to proceed as discussed.? (2) Gallbladder sludge: Code(s): K82.8 - Other specified diseases of gallbladder Status: Acute
--- NOTE | 2025-03-28 07:22 | WPDHPUPDATE1 ---
History and Physical Update Update Date/Time: 03/28/25 07:22 History and Physical has been reviewed, including an updated exam of the patient. There are NO changes in the patient's condition. Risks, benefits, and alternatives have been discussed and questions answered. Patient agrees to proceed with procedure.
[2025-03-28] MEDS: ceFAZolin 2 GM in SODIUM CHLORIDE 0.9% IV 50 ML 100 ML IVPB (07:38)
[2025-03-28] MEDS: LIDO 1%/EPINEPHRINE 1:100,000 20 ML VIAL 30 ML INFILTRATE (08:41)
[2025-03-28] MEDS: BUPivacaine HCL 0.5% 10 ML AMP 30 ML INFILTRATE (08:41)
--- NOTE | 2025-03-28 08:47 | S_PTH ---
PATIENT: Gal Nunez Jr. LOC: [facility] U#:[id number] AGE/SX: 60/M ROOM: RE03/28/[address]: Raz Sanders MD : 1965 BED: DIS: 03/28/2025 SPEC #: [id number] RECD: 03/28/25 10:56 STATUS: RIOS REQ #: [id number] VENESSA: 03/28/25 08:[address]: Raz Sanders DEPT: [facility] Surgical RECD BY: Kierra Del Angel ENTERED: 03/28/25 10:56 SP TYPE: Surgical OTHR DR: JEROMY,YUSEF Jain Tissues: A - Gallbladder Procedures: Hematoxylin and Eosin Stain Gross and Microscopic Level 3
--- NOTE | 2025-03-28 09:36 | W.PM.PROC2 ---
Procedure Note - Detailed Date of Procedure 03/28/25 Pre-op Diagnosis billary dysknesia, gallbladder sludge, reducible primary umbilical hernia Post-op Diagnosis Other (Acalculous chronic cholecystitis secondary to gallbladder sludge and dyskinesia, reducible umbilical hernia defect = 1 cm) Procedure Performed Robotic assisted laparoscopic cholecystectomy Open umbilical hernia repair without mesh Surgeon Raz Sanders MD Software Engineer [employer] [facility] Anesthesia General Indications Patient is a 60-year-old male who presented with complaints of right upper quadrant abdominal pain associated with eating. He had workup for gallbladder disease was found have gallbladder sludge and a low ejection fraction of gallbladder 22%. He presents now for left robotic assisted laparoscopic cholecystectomy. Findings There was chronic inflammation of his gallbladder. There was omentum which was adherent to the gallbladder improvement developing the gallbladder. There was no pericholecystic fluid. Gallbladder wall was mildly thickened. No gallstones were palpated within the gallbladder. The small umbilical hernia had some preperitoneal fat within it. The defect measured 1cm in diameter. It was closed primarily with placement of permanent suture. Description of Procedure After informed consent was obtained, the patient brought to the operating room was placed supine position and general endotracheal anesthesia was administered. The abdomen was then prepped and draped usual sterile fashion. A time-out was then performed correctly identifying the patient as well as procedure to be performed. He was given perioperative IV antibiotics. I then started by placing a 5mm Optiview port in the left upper quadrant to gain access to the abdomen with a direct optical insertion. Once inside the abdomen insufflated to adequate pneumoperitoneum of 15mmHg of CO2. There were no adhesions to obscure the area around the umbilicus. Then placed an 8mm robotic trocar port just below the umbilicus. I then proceeded to switch laparoscopic over to the periumbilical trocar port and then looking to the upper portion of the abdomen the gallbladder appeared to be involved within omentum. There was no acute inflammation of the area but it appeared the gallbladder had chronic inflammation. I then placed additional robotic trocar ports across the mid abdomen. The 5mm left upper trocar port was switched out to a 10mm bedside assistant prosecuting attorney trocar port. The kissnofrog robot was then brought to the patient's bedside and the robotic arms were attached robotic ports. Robotic instruments were then advanced into the abdomen under direct visualization. I then scrubbed out the procedure sent down the robotic console to perform the dissection. I 1st released the omentum and the adhesions to the gallbladder wall utilizing robotic hook cautery. Once I had exposed the dome of the gallbladder I was able to hold with a robotic grasper and elevated the gallbladder over the right half liver towards right shoulder. I continued stripping away and dividing the adhesions to the gallbladder wall of the omentum until the infundibular gallbladder was identified. Once this done a 2nd grasper was used to hold the gallbladder at the infundibulum and with lateral traction I continued taking down the omental adhesions to the remaining portion of the gallbladder. Utilizing firefly I was able to identify what appeared to be the cystic duct by imaging with firefly. I then utilized a robotic hook cautery to dissect out the cystic duct circumferentially. The cystic artery had both an anterior posterior branch both these were dissected out circumferentially. The posterior wall the gallbladder at the infundibulum dissected off the cystic plate. I then achieved the critical view of safety and then placed 2 robotic clips proximally on the cystic duct and 1 distally high on infundibular gallbladder. The cystic duct was divided with the robotic hook on pure cut. Then I placed robotic clips on the cystic artery branches. There were then divided with electrocautery. The gallbladder was resected off the liver without spilling any bile. Once the gallbladder was completely freed from the liver it was placed into an Endo-Catch bag and brought out through the left upper quadrant 10mm trocar port site. The gallbladder and contents were sent to pathology for examination. I then examined the liver bed with firefly and there was no evidence of leaking of bile. There was good hemostasis in the gallbladder bed and and the clips appeared to be in good position the cystic duct stump and the cystic artery stump. I then had the robotic instruments were removed from the abdomen and the [email or web address] robot was undocked from the patient's bedside. I then removed all the trocar ports under direct visualization all port sites were hemostatic. The abdomen was allowed to decompress. I then irrigated out the port sites sterile saline solution. The left upper quadrant 10mm trocar port fascial defect was then closed utilizing 0 Vicryl suture at the fascial level. The remaining port sites were then closed utilizing a running subcuticular 4-0 Monocryl suture. The incisions were then cleaned and skin glue was applied. I then turned my attention was repairing the small umbilical hernia. A small curved incision was made just below the umbilicus with a scalpel dissection was carried down through the subcutaneous tissues into I had the small hernia sac. I then opened hernia sac to find a small amount of preperitoneal fat. The protruding preperitoneal fat was then resected utilized electrocautery. The defect in the fascia measured 1cm in diameter. Two separate 0 Ethibond sutures were placed to close the defect without any tension. The incision was then irrigated sterile saline solution hemostasis was good. I then recreated inverted umbilicus by tacking down the dermis of the umbilicus the deeper fascial structures with 3-0 Vicryl sutures. Subcutaneous tissues were closed interrupted 3-0 Vicryl sutures. The skin edges were approximated utilizing a running subcuticular 4-0 Monocryl suture. Skin glue was then applied. The patient tolerated the procedure well no complications. All sponges, needles, and instrument counts were correct at the end procedure. EBL was ___cc. The patient was awakened and taken to recovery in stable and satisfactory condition. Implants None Estimated Blood Loss 20 Drains No Packing No Pathology Yes (Gallbladder and contents to pathology) Complications No immediate complications Condition Stable Disposition PACU [facility] Billing Surgery - Charge Forward: Surgery Billing
[2025-03-28] MEDS: oxyCODONE HCL (*CRX) 5 MG TAB IR PO (10:52)
== END 2025-03-28 11:36 | disposition home or self-care (01) ==
PROVIDERS: PCP Family Medicine; Visit Provider Surgery
PROC: 0FT44ZZ Resection of Gallbladder, Percutaneous Endoscopic Approach (ICD-10-PCS; CPT 47562; principal; 2025-03-28 07:30)
PROC: (CPT 49591; 2025-03-28 07:30)
DX: K81.1 Chronic cholecystitis (principal); K42.9 Umbilical hernia without obstruction or gangrene
CPT/HCPCS: 49591; 47562; S2900; 88304; J0690; A9270; J1100; J1171; J1596; J1885; J2003; J2004; J2250; J2405; J2704; J3010; J7030; J7120